=== PATIENT | female | born 1995 | race Caucasian/White ===

== ENCOUNTER 2019-03-28 10:40 | Inpatient (IN) ==
[2019-03-28] MEDS ORDERED: LACTATED RINGERS 500 ML IV PRN (10:58)
[2019-03-28] MEDS ORDERED: LACTATED RINGERS 250 ML IV ONE (10:58)
[2019-03-28] MEDS ORDERED: ONDANSETRON 4 MG/2 ML VIAL IV PRN ×2 (10:58→13:13)
[2019-03-28] MEDS ORDERED: OXYTOCIN/LR 20 UNIT/1,000 ML BAG IV SCH (11:00)
[2019-03-28] MEDS: LACTATED RINGERS 1,000 ML IV SCH ×2 (11:14→21:42)
[2019-03-28 11:27] LABS: Basophils # 0.1 10*3/uL (0.0-0.2); Basophils % 0.3 % (0.0-0.8); Eosinophils # 0.2 10*3/uL (0.0-0.87); Hematocrit 37.4 VOL% (35.7-47.0); Hemoglobin 12.5 GM/DL (12.0-16.0); Immature Granulocytes Absolute 0.16 #; Lymphocytes # 2.4 10*3/uL (1.4-4.0); Lymphocytes % 15.7 % (21.3-54.2); Mean Corpuscular HGB Conc 33.4 GM/DL (32-36); Mean Corpuscular Volume 93.5 FL (87-102); Mean Platelet Volume 13.4 FL (9.6-12.0); Monocytes % 6.2 % (1.7-12.7); Neutrophils % 75.8 % (38.7-73.9); Platelet Count 189 T/CUMM (130-400); Red Cell Distribution Width 14.3 % (9.3-17.3); White Blood Count 15.2 T/CUMM (4-12)
[2019-03-28 11:55] LABS: Alanine Aminotransferase 15 U/L (13-56); Albumin 2.8 G/DL (3.4-5.0); Alkaline Phosphatase 149 U/L (45-117); Aspartate Amino Transferase 13 U/L (0-37); Bilirubin,Total < 0.39 MG/DL (0.2-1.0); Blood Urea Nitrogen 13 MG/DL (7-18); Calcium 9.6 MG/DL (8.5-10.1); Estimated Glom Filtration Rate 122 ML/MIN; Glucose 72 MG/DL (74-106); Osmolality,Calculated 271.8 MOS/KG (273-304); Total Protein 7.5 G/DL (6.4-8.3)
[2019-03-28 11:56] LABS: Bilirubin,Direct < 0.100 MG/DL (0.0-0.20); Uric Acid 5.5 MG/DL (2.6-6.0)
[2019-03-28 11:59] LABS: INR 0.8; PT Patient Result 9.1 SECS (9.6-12.2); Partial Thromboplastin Time 24.3 SECS (20.8-36.0)
[2019-03-28] MEDS ORDERED: KETOROLAC 60 MG/2 ML VIAL IM ONE (13:13)
[2019-03-28] MEDS ORDERED: hydrOXYzine HCL 25 MG/1 ML VIAL IM PRN (13:13)
[2019-03-28] MEDS ORDERED: NALOXONE 0.4 MG/ML VIAL IV PRN (13:13)
[2019-03-28] MEDS ORDERED: ePHEDrine 50 MG/ML AMP IV PRN (13:13)
[2019-03-28] MEDS ORDERED: diphenhydrAMINE CAP 25 MG CAPSULE PO PRN (13:13)
[2019-03-28] MEDS ORDERED: PROMETHAZINE 25 MG/1 ML VIAL IM ONE (13:13)
[2019-03-28] MEDS ORDERED: KETOROLAC 10 MG TABLET PO PRN (13:13)
[2019-03-28] MEDS ORDERED: diphenhydrAMINE 50 MG/1 ML VIAL IV PRN ×3 (13:13)
[2019-03-28] MEDS ORDERED: FAMOTIDINE 20 MG/2 ML VIAL IV ONE (13:15)
[2019-03-28] MEDS ORDERED: CITRIC ACID/SODIUM CITRATE 30 ML UDCUP PO ONE (13:15)
[2019-03-28] MEDS ORDERED: LACTATED RINGERS 1,000 ML IV ONE (13:15)
[2019-03-28] MEDS ORDERED: MORPHINE EPIDURAL SCH (13:30)
[2019-03-28] MEDS ORDERED: SODIUM CHLORIDE 0.9% EPIDURAL SCH (13:30)
[2019-03-28] MEDS ORDERED: LACTATED RINGERS 1,000 ML IV SCH (13:30)
[2019-03-28] MEDS ORDERED: fentaNYL 2 MCG/ROPIV 0.2% EPID 100 ML EPIDURAL SCH (13:30)
[2019-03-28 14:42] LABS: Apearance,Urine CLEAR (Clear); Bilirubin,Urine Negative (Negative); Blood, Urine Negative (Negative); Glucose,Urine (UA) Negative (Negative); Hyaline Casts,Urine 1 /LPF (0-3); Ketones,Urine Negative (Negative); Mucus,Urine Few /LPF (Occasional); Nitrite,Urine Negative (Negative); Protein,Urine 30 MG/DL; RBC,Urine 1 /HPF (0-4); Squamous Epithelial Cell,Urine Occasional /HPF (0-10); Urine Color Yellow (Yellow); Urine Specific Gravity 1.014 (1.001-1.035); Urine Urobilinogen < 2.0 EU/DL (0.2-1.0); WBC,Urine 2 /HPF (0-6)
[2019-03-28] MEDS ORDERED: KETOROLAC 30 MG/1 ML VIAL IM PRN (19:13)
[2019-03-28] MEDS ORDERED: OXYTOCIN/LR 20 UNIT/1,000 ML BAG IV ONE (23:21)
[2019-03-28] MEDS ORDERED: TRANEXAMIC ACID 1,000 MG/10 ML VIAL ONE (23:21)
[2019-03-28] MEDS ORDERED: miSOPROStoL 200 MCG TABLET ONE (23:21)
[2019-03-28] MEDS ORDERED: SODIUM CHLORIDE 0.9% 0 ML IV ONE (23:22)
[2019-03-28] MEDS ORDERED: CARBOPROST TROMETHAMINE 250 MCG/ML AMP IM ONE (23:22)
[2019-03-28] MEDS ORDERED: METHYLERGONOVINE 0.2 MG/1 ML AMP ONE (23:22)
[2019-03-29] MEDS ORDERED: BENZOCAINE 20%/MENTHOL 0.5% SPRAY 56 GM CAN TOP PRN (01:30)
[2019-03-29] MEDS ORDERED: BISACODYL 10 MG SUPP RECTAL PRN (01:30)
[2019-03-29] MEDS ORDERED: ONDANSETRON 4 MG/2 ML VIAL IV PRN (01:30)
[2019-03-29] MEDS ORDERED: IBUPROFEN 800 MG TABLET PO PRN (01:30)
[2019-03-29] MEDS ORDERED: DIPH/TET/ACEL PERT BOOSTER VACCINE 0.5 ML VIAL IM ONE (01:30)
[2019-03-29] MEDS ORDERED: WITCH HAZEL PADS 100/JAR TOP PRN (01:30)
[2019-03-29] MEDS ORDERED: MEASLES/MUMPS/RUBELLA VACCINE 0.5 ML VIAL SUBCUT ONE (01:30)
[2019-03-29] MEDS ORDERED: ACETAMINOPHEN 325 MG TABLET PO PRN (01:30)
[2019-03-29] MEDS ORDERED: RHO(D) IMMUNE GLOBULIN 300 MCG SYRINGE IM ONE (01:30)
[2019-03-29] MEDS ORDERED: oxyCODONE/ACETAMINOPHEN 5-325 MG TABLET PO PRN ×2 (01:30)
[2019-03-29] MEDS ORDERED: OXYTOCIN/LR 20 UNIT/1,000 ML BAG IV ONE (01:30)
[2019-03-29] MEDS ORDERED: HYDROCORTISONE 2.5% RECTAL CREAM 30 GM TUBE TOP PRN (01:30)
[2019-03-29] MEDS ORDERED: LANOLIN 50% CREAM 0.3 OZ TUBE TOP PRN (01:30)
[2019-03-29 05:56] LABS: Basophils % 0.2 % (0.0-0.8); Eosinophils % 0.1 % (0.00-10.9); Hematocrit 32.4 VOL% (35.7-47.0); Hemoglobin 10.9 GM/DL (12.0-16.0); Immature Granulocytes % 0.5 %; Immature Granulocytes Absolute 0.09 #; Lymphocytes # 1.7 10*3/uL (1.4-4.0); Lymphocytes % 10.4 % (21.3-54.2); Mean Corpuscular HGB Conc 33.6 GM/DL (32-36); Mean Corpuscular Volume 93.4 FL (87-102); Mean Platelet Volume 13.4 FL (9.6-12.0); Monocytes % 5.4 % (1.7-12.7); Neutrophils % 83.4 % (38.7-73.9); Platelet Count 147 T/CUMM (130-400); Red Blood Count 3.47 MC/CUMM (3.8-5.5); Red Cell Distribution Width 14.3 % (9.3-17.3); White Blood Count 16.7 T/CUMM (4-12)
[2019-03-29] MEDS: DOCUSATE SODIUM 100 MG CAPSULE PO SCH ×2 (09:38→21:48)
[2019-03-30] MEDS: DOCUSATE SODIUM 100 MG CAPSULE PO SCH (08:43)
[2019-03-30 15:32] VITALS: BP 136/91
== END 2019-03-30 15:00 | disposition home or self-care (01) | DRG 560 ==
LOC: N.LDOUT 10:40 → N.LD 10:44 → N.OB 03-29 03:50
PROVIDERS: ADMIT Obstetrics & Gynecology; ATTEND Obstetrics & Gynecology